=== PATIENT | female | born 1940 | race Caucasian/White ===

== ENCOUNTER 2024-02-24 14:00 | Inpatient (IN) | payer MEDICARE, OTHER ==
[2024-02-24 14:00] VITALS: BP 157/47
[~2024-02-24 14:00] MED LIST: AMITRIPTYLINE10 MG PO; ANTI-GAS 8080 MG PO; ASPIRIN81 M1 PO; BRIN10TA PO; BUMETANIDE1 MG PO; CARVEDILOL6.25 MG PO; COLACE1 SUP RC; COLACE100 MG PO; COREG12.5 MG PO; CYMBALTA30 MG PO; ELIQUIS2.5 M1 PO; ELIQUIS5 M1 PO; FLEET 135 ML135 ML R; GABAPENTIN100 M2 PO; GENTLE IRON 281 EACH PO; GLUCOPHAGE500 M1 PO; HALDOL5 MG/M1 IM; KLONOPIN0.5 MG PO; LEVOTHYROXINE100 MC2 PO; LIPITOR40 MG PO; LISINOPRIL5 MG PO; METFORMIN HYDR500 MG PO; MIRALAX POWDER17 G1 PO; MOM30 M1 PO; NOVOLOG FLEX100 U/ML SC; PANTOPRAZOLE SO40 MG PO; PLAVIX75 MG PO; PROTONIX40 MG PO; QUETIAPINE FUM100 M2 PO; REGLAN5 MG PO; RESTORIL15 MG PO; ROZEREM8 MG PO; SEROQUEL25 MG PO; SEROQUEL50 MG PO; SYNTHROID0.075 MG PO; TRINTELLIX20 MG PO; VITAMIN D1000 IU PO; XALATAN 0.005%2.5 ML INTRAOC; ZITHROMAX250 MG PO
[2024-02-24] MEDS ORDERED: Metoclopramide Hydrochloride 10 MG/2 ML AMP IV ONE (14:45)
[2024-02-24] MEDS ORDERED: diphenhydrAMINE hydrochloride 50 MG/ML VIAL IV ONE (14:50)
[2024-02-24 16:18] LABS: BASO # 0.1 10*3/uL (0.0-0.1); BASO % 0.5 % (0.0-1.0); EOS # 0.2 10*3/uL (0.0-0.4); EOS % 1.7 % (1.0-4.0); HEMATOCRIT 37.9 % (37.0-47.0); LYMPH # 2.9 10*3/uL (1.3-4.4); LYMPH % 21.9 % (27.0-41.0); MEAN CELL VOLUME 96.4 fl (81.0-99.0); MEAN CORPUSCULAR HGB 29.5 pg (27.0-31.0); MEAN CORPUSCULAR HGB CONC 30.6 g/dl (33.0-37.0); MEAN PLATELET VOLUME 11.3 fl (9.6-12.3); MONO # 0.9 10*3/uL (0.1-1.0); MONO % 7.1 % (3.0-9.0); NEUT # 8.9 10*3/uL (2.3-7.9); NEUT % 68.4 % (47.0-73.0); PLATELET COUNT AUTOMATED 305 10*3/uL (130-400); RED BLOOD COUNT 3.93 10*6/uL (4.10-5.10); RED CELL DISTRI WIDTH 14.6 % (0-14.5)
[2024-02-24 16:45] LABS: ALKALINE PHOSPHATASE 108 U/L (46-116); BUN 40 mg/dl (9-23); CHLORIDE 105 mmol/L (98-107); CPK 38 U/L (34-171); ETHYL ALCOHOL < 3.0 mg/dl (<3); POTASSIUM 4.6 mmol/L (3.4-5.1); SGPT/ALT 8 U/L (5-49); TOTAL PROTEIN 7.7 gm/dL (6.0-8.0)
[2024-02-24 16:50] VITALS: BP 128/42
[2024-02-24] MEDS ORDERED: SODIUM CHLORIDE 0.9% 1,000 ML IV ONE (16:50)
[2024-02-24] MEDS ORDERED: RIVASTIGMINE T4.5 M1 PO (17:14)
[2024-02-24] MEDS ORDERED: HYDROXYZINE HCL25 MG PO (17:14)
[2024-02-24] MEDS ORDERED: 8 HOUR650 MG PO (17:16)
[2024-02-24 17:46] LABS: BILIRUBIN Negative (Negative); BLOOD Negative (Negative); CLARITY Clear (Clear); COLOR Yellow (Yellow); GLUCOSE Negative (Negative); KETONE Negative (Negative); LEUKO ESTERASE Trace (Negative); NITRITE Negative (Negative); SPECIFIC GRAVITY 1.015 (1.001-1.030); UROBILINOGEN 0.2 E.U./dl (0.0-1.0)
[2024-02-24 17:52] LABS: URINE AMPHETAMINES Negative (1000ng/ml); URINE BARBITURATES Negative (200ng/ml); URINE BENZODIAZEPINES Negative (200ng/ml); URINE CANNABINOIDS (THC) Negative (50ng/ml); URINE COCAINE Negative (300ng/ml); URINE METHADONE Negative (300ng/ml); URINE OPIATES Negative (300ng/ml); URINE PHENCYCLIDINE Negative (25ng/ml)
[2024-02-24 17:56] LABS: BACTERIA TRACE; YEAST TRACE
[2024-02-24] MEDS ORDERED: Ondansetron Hydrochloride 4 MG/2 ML VIAL IV PRN (20:30)
[2024-02-24] MEDS ORDERED: Magnesium Hydroxide 30 ML UDC PO PRN (20:30)
[2024-02-24] MEDS ORDERED: DEXTROSE 10 % IN WATER 250 ML IV PRN (20:30)
[2024-02-24] MEDS ORDERED: BISACODYL 10 MG SUPP R PRN (20:30)
[2024-02-24] MEDS ORDERED: BISACODYL 5 MG TAB PO PRN (20:30)
[2024-02-24] MEDS ORDERED: SODIUM CHLORIDE 0.9% 1,000 ML IV SCH (20:35)
[2024-02-24] MEDS ORDERED: HEPARIN SODIUM 5,000 UNIT/ML VIAL SC SCH (22:00)
[2024-02-24] MEDS ORDERED: INSULIN LISPRO 1 UNIT/0.01 ML SQ SCH (22:00)
[2024-02-24] MEDS ORDERED: Midazolam Hydrochloride 5 MG/5 ML VIAL IM ONE (23:10)
[2024-02-24 23:32] VITALS: BP 132/50
[2024-02-25 05:08] LABS: POTASSIUM 4.1 mmol/L (3.4-5.1)
[2024-02-25 05:55] LABS: BASO # 0.1 10*3/uL (0.0-0.1); BASO % 0.4 % (0.0-1.0); EOS # 0.1 10*3/uL (0.0-0.4); EOS % 0.6 % (1.0-4.0); HEMATOCRIT 36.3 % (37.0-47.0); LYMPH # 2.7 10*3/uL (1.3-4.4); LYMPH % 20.2 % (27.0-41.0); MEAN CELL VOLUME 94.5 fl (81.0-99.0); MEAN CORPUSCULAR HGB 29.7 pg (27.0-31.0); MEAN CORPUSCULAR HGB CONC 31.4 g/dl (33.0-37.0); MEAN PLATELET VOLUME 11.8 fl (9.6-12.3); MONO # 1.1 10*3/uL (0.1-1.0); MONO % 8.2 % (3.0-9.0); NEUT # 9.3 10*3/uL (2.3-7.9); NEUT % 70.2 % (47.0-73.0); PLATELET COUNT AUTOMATED 334 10*3/uL (130-400); RED BLOOD COUNT 3.84 10*6/uL (4.10-5.10); RED CELL DISTRI WIDTH 14.7 % (0-14.5); WHITE BLOOD COUNT 13.2 10*3/uL (4.8-10.8)
[2024-02-25 06:13] VITALS: BP 152/48
[2024-02-25 08:28] VITALS: BP 135/59
[2024-02-25] MEDS ORDERED: Midazolam Hydrochloride 5 MG/ML VIAL INH ONE (10:55)
[2024-02-25] MEDS ORDERED: LORazepam 2 MG/ML VIAL IM ONE (11:45)
[2024-02-25] MEDS ORDERED: LORazepam 2 MG/ML VIAL ONE (12:22)
[2024-02-25] MEDS ORDERED: ATIVAN0.5 MG PO (23:16)
[2024-02-25] MEDS ORDERED: ELIQUIS2.5 M1 PO (23:19)
== END 2024-02-25 16:40 | DRG 682 ==
LOC: ED 14:00 → EDHOLD 19:30
PROVIDERS: Nurse Practitioner Family; Student in an Organized Health Care Education/Training Program; ADMIT Internal Medicine; ATTEND Internal Medicine
DX: N17.0 Acute kidney failure with tubular necrosis (principal); G93.41 Metabolic encephalopathy; E87.20 Acidosis, unspecified; E86.0 Dehydration; Z66 Do not resuscitate; E11.65 Type 2 diabetes mellitus with hyperglycemia; D50.9 Iron deficiency anemia, unspecified; F32.9 Major depressive disorder, single episode, unspecified; I25.10 Atherosclerotic heart disease of native coronary artery without angina pectoris; Z96.653 Presence of artificial knee joint, bilateral; F03.90 Unspecified dementia, unspecified severity, without behavioral disturbance, psychotic disturbance, mood disturbance, and anxiety; I10 Essential (primary) hypertension; Z90.710 Acquired absence of both cervix and uterus; Z95.1 Presence of aortocoronary bypass graft; Z82.49 Family history of ischemic heart disease and other diseases of the circulatory system; Z88.5 Allergy status to narcotic agent; Z88.1 Allergy status to other antibiotic agents; Z91.041 Radiographic dye allergy status; Z88.8 Allergy status to other drugs, medicaments and biological substances; Z79.1 Long term (current) use of non-steroidal anti-inflammatories (NSAID); Z79.2 Long term (current) use of antibiotics; Z79.899 Other long term (current) drug therapy; Z79.4 Long term (current) use of insulin; Z79.84 Long term (current) use of oral hypoglycemic drugs; Z51.5 Encounter for palliative care

== ENCOUNTER 2024-02-25 13:34 | Inpatient (IN) | payer MEDICARE, OTHER ==
[~2024-02-25] VITALS: Ht 152.4 cm; Wt 93.4 kg
[~2024-02-25 13:34] MED LIST changes: +8 HOUR650 MG PO; +HYDROXYZINE HCL25 MG PO; +RIVASTIGMINE T4.5 M1 PO
[2024-02-25] MEDS ORDERED: Magnesium Hydroxide 30 ML UDC PO PRN (23:05)
[2024-02-25] MEDS ORDERED: ACETAMINOPHEN 325 MG TAB PO PRN (23:05)
[2024-02-25] MEDS ORDERED: MG-AL HYDROXIDE/SIMETICONE 30 ML UDC PO PRN (23:05)
[2024-02-25] MEDS ORDERED: Menthol/Zinc Oxide 4 GM THIN T PRN (23:10)
[2024-02-25] MEDS ORDERED: ATIVAN0.5 MG PO (23:16)
[2024-02-25] MEDS ORDERED: ELIQUIS2.5 M1 PO (23:19)
[2024-02-25] MEDS ORDERED: LORazepam 1 MG TAB PO PRN (23:30)
[2024-02-25] MEDS ORDERED: Ziprasidone Mesylate 20 MG VIAL IM PRN (23:30)
[2024-02-26] MEDS ORDERED: DEXTROSE 10 % IN WATER 250 ML IV PRN (00:35)
[2024-02-26] MEDS ORDERED: Levothyroxine Sodium 125 MCG TAB PO SCH (06:00)
[2024-02-26] MEDS ORDERED: Pantoprazole Sodium 40 MG TAB PO SCH (06:00)
[2024-02-26] MEDS ORDERED: INSULIN LISPRO 1 UNIT/0.01 ML SQ SCH (07:30)
[2024-02-26 07:41] LABS: BASO # 0.1 10*3/uL (0.0-0.1); BASO % 0.5 % (0.0-1.0); EOS # 0.4 10*3/uL (0.0-0.4); EOS % 3.6 % (1.0-4.0); LYMPH # 3.3 10*3/uL (1.3-4.4); LYMPH % 32.4 % (27.0-41.0); MEAN CELL VOLUME 94.7 fl (81.0-99.0); MEAN CORPUSCULAR HGB 29.7 pg (27.0-31.0); MEAN CORPUSCULAR HGB CONC 31.4 g/dl (33.0-37.0); MEAN PLATELET VOLUME 10.8 fl (9.6-12.3); MONO # 1.2 10*3/uL (0.1-1.0); MONO % 11.6 % (3.0-9.0); NEUT # 5.2 10*3/uL (2.3-7.9); NEUT % 51.6 % (47.0-73.0); PLATELET COUNT AUTOMATED 310 10*3/uL (130-400); RED CELL DISTRI WIDTH 14.8 % (0-14.5); WHITE BLOOD COUNT 10.1 10*3/uL (4.8-10.8)
[2024-02-26 08:43] LABS: ALKALINE PHOSPHATASE 101 U/L (46-116); BUN 34 mg/dl (9-23); CHLORIDE 105 mmol/L (98-107); CHOLESTEROL 298 mg/dL (<200); LDL CHOLESTEROL 207 mg/dL (9-159); POTASSIUM 4.7 mmol/L (3.4-5.1); TOTAL PROTEIN 7.7 gm/dL (6.0-8.0); TRIGLYCERIDES 255 mg/dl (<150); VITAMIN D, 25-HYDROXY 41.2 ng/mL (30-100)
[2024-02-26 08:44] LABS: SGPT/ALT < 7 U/L (5-49)
[2024-02-26 08:51] VITALS: BP 145/58
[2024-02-26] MEDS ORDERED: QUETIAPINE FUMARATE 25 MG TAB PO SCH (09:00)
[2024-02-26] MEDS ORDERED: APIXABAN 5 MG TAB PO SCH (09:00)
[2024-02-26] MEDS ORDERED: Levothyroxine Sodium 100 MCG TAB PO SCH (09:00)
[2024-02-26] MEDS ORDERED: Rivastigmine Tartrate 3 MG CAP PO SCH (09:00)
[2024-02-26] MEDS ORDERED: GABAPENTIN 100 MG CAP PO SCH (10:00)
[2024-02-26] MEDS ORDERED: Polyethylene Glycol 3350 17 GM PACKET PO SCH (10:00)
[2024-02-26] MEDS ORDERED: CARVEDILOL 6.25 MG TAB PO SCH (10:00)
[2024-02-26] MEDS ORDERED: ASPIRIN ENTERIC COATED 81 MG TAB PO SCH (10:00)
[2024-02-26 14:00] VITALS: BP 145/58
[2024-02-26 20:00] VITALS: BP 130/52
[2024-02-26] MEDS ORDERED: Memantine Hydrochloride 5 MG TAB PO SCH (21:00)
[2024-02-26] MEDS ORDERED: QUETIAPINE FUMARATE 100 MG TAB PO SCH (22:00)
[2024-02-27 07:26] VITALS: BP 106/50
[2024-02-27] MEDS ORDERED: Rivastigmine Tartrate 9.5 MG/24 HR PATCH T SCH (09:35)
[2024-02-27 20:00] VITALS: BP 123/58
[2024-02-27] MEDS ORDERED: Memantine Hydrochloride 5 MG TAB PO SCH (21:00)
[2024-02-28 07:23] LABS: POTASSIUM 4.2 mmol/L (3.4-5.1)
[2024-02-28 08:00] VITALS: BP 135/47
[2024-02-28 20:00] VITALS: BP 128/54
[2024-02-29 08:00] VITALS: BP 131/52
[2024-02-29 20:00] VITALS: BP 138/61
[2024-03-01 07:31] VITALS: BP 124/52
[2024-03-01 20:00] VITALS: BP 118/83
[2024-03-02 07:38] VITALS: BP 136/52
[2024-03-02 20:00] VITALS: BP 125/59
[2024-03-03 08:05] VITALS: BP 138/76
[2024-03-03] MEDS ORDERED: RIVASTIGMINE 13.3 MG/24 HR TDM T SCH (09:00)
[2024-03-03] MEDS ORDERED: QUETIAPINE FUM100 M3 PO (09:05)
[2024-03-03] MEDS ORDERED: NAMENDA-5 PO (09:05)
[2024-03-03] MEDS ORDERED: RIVASTIGMINE1 EAC2 T (09:05)
[2024-03-03] MEDS ORDERED: QUETIAPINE FUMA25 MG PO (09:05)
== END 2024-03-03 18:48 | DRG 885 ==
LOC: 3N
PROVIDERS: Student in an Organized Health Care Education/Training Program; ADMIT Psychiatry & Neurology Psychiatry; ATTEND Psychiatry & Neurology Psychiatry
PROC: GZHZZZZ Group Psychotherapy (ICD-10-PCS; principal; 2024-02-29)
PROC: GZ51ZZZ Individual Psychotherapy, Behavioral (ICD-10-PCS; 2024-02-29)
DX: F23 Brief psychotic disorder (principal); F63.81 Intermittent explosive disorder; N17.0 Acute kidney failure with tubular necrosis; E11.65 Type 2 diabetes mellitus with hyperglycemia; F33.9 Major depressive disorder, recurrent, unspecified; F02.82 Dementia in other diseases classified elsewhere, unspecified severity, with psychotic disturbance; Z96.653 Presence of artificial knee joint, bilateral; D50.9 Iron deficiency anemia, unspecified; G30.9 Alzheimer's disease, unspecified; I10 Essential (primary) hypertension; I25.10 Atherosclerotic heart disease of native coronary artery without angina pectoris; Z90.710 Acquired absence of both cervix and uterus; Z95.1 Presence of aortocoronary bypass graft; Z82.49 Family history of ischemic heart disease and other diseases of the circulatory system; Z88.5 Allergy status to narcotic agent; Z88.1 Allergy status to other antibiotic agents; Z91.041 Radiographic dye allergy status; Z88.8 Allergy status to other drugs, medicaments and biological substances; Z79.82 Long term (current) use of aspirin; Z79.899 Other long term (current) drug therapy; Z79.84 Long term (current) use of oral hypoglycemic drugs; Z79.1 Long term (current) use of non-steroidal anti-inflammatories (NSAID)

== ENCOUNTER 2024-02-25 20:22 | Emergency (ER) | payer MEDICARE, OTHER ==
[~2024-02-25] VITALS: Ht 167.6 cm; Wt 90.7 kg
[2024-02-25 20:58] LABS: BASO # 0.1 10*3/uL (0.0-0.1); BASO % 0.5 % (0.0-1.0); EOS # 0.1 10*3/uL (0.0-0.4); HEMATOCRIT 36.5 % (37.0-47.0); LYMPH # 3.8 10*3/uL (1.3-4.4); LYMPH % 30.3 % (27.0-41.0); MEAN CELL VOLUME 95.3 fl (81.0-99.0); MEAN CORPUSCULAR HGB 29.2 pg (27.0-31.0); MEAN CORPUSCULAR HGB CONC 30.7 g/dl (33.0-37.0); MONO # 1.3 10*3/uL (0.1-1.0); MONO % 10.4 % (3.0-9.0); NEUT # 7.1 10*3/uL (2.3-7.9); NEUT % 57.5 % (47.0-73.0); PLATELET COUNT AUTOMATED 314 10*3/uL (130-400); RED BLOOD COUNT 3.83 10*6/uL (4.10-5.10); RED CELL DISTRI WIDTH 14.8 % (0-14.5); WHITE BLOOD COUNT 12.4 10*3/uL (4.8-10.8)
[2024-02-25 21:20] LABS: ALKALINE PHOSPHATASE 100 U/L (46-116); BUN 34 mg/dl (9-23); CHLORIDE 103 mmol/L (98-107); POTASSIUM 3.8 mmol/L (3.4-5.1); SGPT/ALT 8 U/L (5-49); TOTAL PROTEIN 7.8 gm/dL (6.0-8.0)
[2024-02-25 21:26] LABS: ETHYL ALCOHOL < 3.0 mg/dl (<3)
[2024-02-25] MEDS ORDERED: LORazepam 2 MG/ML VIAL ONE (22:00)
[2024-02-25] MEDS ORDERED: Ziprasidone Mesylate 20 MG VIAL IM ONE (22:30)
[2024-02-25] MEDS ORDERED: Water, Sterile 10 ML VIAL ONE (22:42)
[2024-02-25] MEDS ORDERED: ATIVAN0.5 MG PO (23:16)
[2024-02-25] MEDS ORDERED: ELIQUIS2.5 M1 PO (23:19)
== END 2024-02-26 01:09 ==
LOC: ED 20:22
PROVIDERS: Emergency Medicine
DX: F29 Unspecified psychosis not due to a substance or known physiological condition (principal); E11.9 Type 2 diabetes mellitus without complications; F03.90 Unspecified dementia, unspecified severity, without behavioral disturbance, psychotic disturbance, mood disturbance, and anxiety; F32.A Depression, unspecified; I10 Essential (primary) hypertension; I25.10 Atherosclerotic heart disease of native coronary artery without angina pectoris; E11.65 Type 2 diabetes mellitus with hyperglycemia; D64.9 Anemia, unspecified; F41.9 Anxiety disorder, unspecified; I50.9 Heart failure, unspecified; K21.9 Gastro-esophageal reflux disease without esophagitis; E03.9 Hypothyroidism, unspecified; Z88.5 Allergy status to narcotic agent; Z91.041 Radiographic dye allergy status; Z88.1 Allergy status to other antibiotic agents; Z87.442 Personal history of urinary calculi; Z90.710 Acquired absence of both cervix and uterus; Z96.653 Presence of artificial knee joint, bilateral; Z98.890 Other specified postprocedural states

== ENCOUNTER 2024-03-08 10:07 | Emergency (ER) | payer MEDICARE, OTHER ==
[~2024-03-08] VITALS: Wt 90.7 kg
[~2024-03-08 10:07] MED LIST changes: +ATIVAN0.5 MG PO; +NAMENDA-5 PO; +QUETIAPINE FUM100 M3 PO; +QUETIAPINE FUMA25 MG PO; +RIVASTIGMINE1 EAC2 T
[2024-03-08] MEDS ORDERED: LORazepam 2 MG/ML VIAL IM ONE (10:55)
[2024-03-08 10:56] LABS: BASO % 0.3 % (0.0-1.0); EOS # 0.2 10*3/uL (0.0-0.4); EOS % 1.5 % (1.0-4.0); HEMATOCRIT 37.5 % (37.0-47.0); LYMPH # 2.8 10*3/uL (1.3-4.4); LYMPH % 26.5 % (27.0-41.0); MEAN CELL VOLUME 94.9 fl (81.0-99.0); MEAN CORPUSCULAR HGB 29.1 pg (27.0-31.0); MEAN CORPUSCULAR HGB CONC 30.7 g/dl (33.0-37.0); MEAN PLATELET VOLUME 10.3 fl (9.6-12.3); MONO # 0.8 10*3/uL (0.1-1.0); MONO % 7.9 % (3.0-9.0); NEUT # 6.7 10*3/uL (2.3-7.9); NEUT % 63.4 % (47.0-73.0); PLATELET COUNT AUTOMATED 328 10*3/uL (130-400); RED BLOOD COUNT 3.95 10*6/uL (4.10-5.10); RED CELL DISTRI WIDTH 14.4 % (0-14.5); WHITE BLOOD COUNT 10.5 10*3/uL (4.8-10.8)
[2024-03-08 11:19] LABS: ALKALINE PHOSPHATASE 115 U/L (46-116); BUN 20 mg/dl (9-23); CHLORIDE 105 mmol/L (98-107); CPK 33 U/L (34-171); LIPASE 43 U/L (12-53); POTASSIUM 3.7 mmol/L (3.4-5.1); SGPT/ALT 8 U/L (5-49); TOTAL PROTEIN 7.4 gm/dL (6.0-8.0)
[2024-03-08 11:20] LABS: ETHYL ALCOHOL < 3.0 mg/dl (<3)
[2024-03-08 11:22] LABS: BILIRUBIN Negative (Negative); BLOOD Negative (Negative); CLARITY Cloudy (Clear); COLOR Yellow (Yellow); GLUCOSE Negative (Negative); KETONE Trace (Negative); LEUKO ESTERASE 1+ (Negative); NITRITE Negative (Negative); PH 6.5 (4.5-8.0); SPECIFIC GRAVITY 1.015 (1.001-1.030)
[2024-03-08 11:33] LABS: BACTERIA 2+; EPITHELIAL CELLS 21-30; YEAST 1+
[2024-03-08 11:34] LABS: URINE AMPHETAMINES Negative (1000ng/ml); URINE BARBITURATES Negative (200ng/ml); URINE BENZODIAZEPINES Negative (200ng/ml); URINE CANNABINOIDS (THC) Negative (50ng/ml); URINE COCAINE Negative (300ng/ml); URINE METHADONE Negative (300ng/ml); URINE OPIATES Negative (300ng/ml); URINE PHENCYCLIDINE Negative (25ng/ml)
[2024-03-08] MEDS ORDERED: Ciprofloxacin Hydrochloride 500 MG TAB PO ONE (14:05)
== END 2024-03-08 15:09 | disposition admitted as inpatient to this hospital (09) ==
LOC: ED 10:07
PROVIDERS: Internal Medicine
DX: F63.81 Intermittent explosive disorder (principal); Z20.822 Contact with and (suspected) exposure to COVID-19; E11.22 Type 2 diabetes mellitus with diabetic chronic kidney disease; I13.0 Hypertensive heart and chronic kidney disease with heart failure and stage 1 through stage 4 chronic kidney disease, or unspecified chronic kidney disease; N18.9 Chronic kidney disease, unspecified; F41.9 Anxiety disorder, unspecified; D64.9 Anemia, unspecified; Z87.442 Personal history of urinary calculi; E11.65 Type 2 diabetes mellitus with hyperglycemia; F32.A Depression, unspecified; E03.9 Hypothyroidism, unspecified; Z88.5 Allergy status to narcotic agent; Z91.041 Radiographic dye allergy status; Z88.1 Allergy status to other antibiotic agents; Z88.8 Allergy status to other drugs, medicaments and biological substances; Z90.710 Acquired absence of both cervix and uterus; Z96.653 Presence of artificial knee joint, bilateral; Z98.890 Other specified postprocedural states